=== PATIENT | male | born 1995 | race Two or more races ===

== ENCOUNTER → 2017-07-15 | Outpatient (REF) | payer OTHER | LOC: M SFHCLERA 18:57 | PROVIDERS: ATTEND Physician Assistant | DX: J02.9 Acute pharyngitis, unspecified (principal) ==

== ENCOUNTER 2023-08-03 07:48 | Emergency (ER) | payer OTHER ==
[~2023-08-03] VITALS: Ht 175.3 cm; Wt 100.7 kg
[2023-08-03] MEDS ORDERED: DICYCLOMINE 10 MG CAP PO ONE (08:30)
[2023-08-03 08:37] LABS: BASO % 0.2 % (0.0-1.0); EOS # 0.4 10^3/uL (0.0-0.5); EOS % 3.8 % (0.0-3.0); HEMATOCRIT 50.6 % (42.0-52.0); LYMPH # 2.6 10^3/uL (1.5-5.0); LYMPH % 25.5 % (24.0-44.0); MEAN CORPUSCULAR HEMOGLOBIN 28.2 pg (27.0-33.0); MEAN CORPUSCULAR HGB CONC 33.6 g/dl (32.0-36.5); MEAN CORPUSCULAR VOLUME 83.9 fl (80.0-96.0); MONO # 0.7 10^3/uL (0.0-0.8); MONO % 6.9 % (2.0-8.0); NEUTROPHILS # 6.5 10^3/uL (1.5-8.5); NEUTROPHILS % 63.4 % (36.0-66.0); PLATELET COUNT, AUTOMATED 245 10^3/uL (150-450); RED BLOOD COUNT 6.03 10^6/uL (4.30-6.10); WHITE BLOOD COUNT 10.2 10^3/uL (4.0-10.0)
[2023-08-03 08:56] LABS: ALBUMIN 4.5 G/DL (3.2-5.2); BILIRUBIN,DIRECT 0.5 MG/DL (<0.4); BILIRUBIN,TOTAL 1.5 MG/DL (0.3-1.2); TOTAL PROTEIN 7.5 G/DL (5.7-8.2)
[2023-08-03] MEDS ORDERED: KETOROLAC 30 MG/ML 1ML VIAL IV ONE (11:00)
[2023-08-03] MEDS ORDERED: ONDANSETRON 4MG 2ML VIAL IV ONE (11:00)
[2023-08-03 12:39] VITALS: BP 125/79; TEMP 98.9; O2SAT 97
== END 2023-08-03 12:40 | disposition home or self-care (01) ==
LOC: M ED 07:48
DX: R10.84 Generalized abdominal pain (principal); F10.10 Alcohol abuse, uncomplicated; Z91.048 Other nonmedicinal substance allergy status

== ENCOUNTER 2023-12-14 12:14 | Emergency (ER) | payer OTHER, SELFPAY ==
[~2023-12-14] VITALS: Ht 175.3 cm; Wt 96.3 kg
[2023-12-14] MEDS ORDERED: BENA25CA4 PO (12:23)
[2023-12-14 13:01] LABS: BASO % 0.2 % (0.0-1.0); EOS # 0.2 10^3/uL (0.0-0.5); EOS % 1.9 % (0.0-3.0); HEMATOCRIT 46.1 % (42.0-52.0); HEMOGLOBIN 15.6 g/dl (13.5-17.5); LYMPH # 1.6 10^3/uL (1.5-5.0); LYMPH % 14.7 % (24.0-44.0); MEAN CORPUSCULAR HEMOGLOBIN 28.9 pg (27.0-33.0); MEAN CORPUSCULAR HGB CONC 33.8 g/dl (32.0-36.5); MEAN CORPUSCULAR VOLUME 85.4 fl (80.0-96.0); NEUTROPHILS % 73.8 % (36.0-66.0); PLATELET COUNT, AUTOMATED 305 10^3/uL (150-450); WHITE BLOOD COUNT 10.8 10^3/uL (4.0-10.0)
[2023-12-14 13:28] LABS: LIPASE 35 U/L (12-53)
[2023-12-14 13:31] LABS: ALKALINE PHOSPHATASE 118 U/L (46-116); ALT/SGPT 150 U/L (7.0-40); AST/SGOT 190 U/L (<34); BILIRUBIN,DIRECT 1.6 MG/DL (<0.4); BILIRUBIN,TOTAL 3.2 MG/DL (0.3-1.2); BLOOD UREA NITROGEN 18 MG/DL (9-23); CARBON DIOXIDE LEVEL 27 MMOL/L (20-31); CHLORIDE LEVEL 109 MMOL/L (98-107); CREATININE FOR GFR 1.03 MG/DL (0.70-1.30); GLOMERULAR FILTRATION RATE > 60.0 (>60); GLUCOSE, FASTING 92 MG/DL (60-100); POTASSIUM SERUM 4.3 MMOL/L (3.5-5.1); SODIUM LEVEL 140 MMOL/L (136-145)
[2023-12-14] MEDS: NS 1,000 ML IV ONE (15:31)
[2023-12-14 15:49] LABS: HEPATITIS C VIRUS ABY INDEX 0.04 INDEX (<0.8)
[2023-12-14 15:50] LABS: HEPATITIS B CORE ANTIBODY IGM NEGATIVE (NEGATIVE)
[2023-12-14 20:46] LABS: BILIRUBIN,TOTAL 4.3 MG/DL (0.3-1.2)
[2023-12-14 20:47] LABS: ALBUMIN 3.7 G/DL (3.2-5.2); BILIRUBIN,DIRECT 2.5 MG/DL (<0.4); TOTAL PROTEIN 6.6 G/DL (5.7-8.2)
[2023-12-14 21:41] VITALS: BP 120/68
[2023-12-14 21:44] VITALS: TEMP 98.8; O2SAT 96
[2023-12-15] MEDS ORDERED: BENA25CA4 PO (13:35)
== END 2023-12-14 21:50 | disposition home or self-care (01) ==
LOC: M ED 12:14
DX: K80.51 Calculus of bile duct without cholangitis or cholecystitis with obstruction (principal); R74.01 Elevation of levels of liver transaminase levels; N28.1 Cyst of kidney, acquired; K76.0 Fatty (change of) liver, not elsewhere classified

== ENCOUNTER 2023-12-15 13:29 | Emergency (ER) | payer OTHER, SELFPAY ==
[~2023-12-15] VITALS: Ht 175.3 cm; Wt 95.9 kg
[~2023-12-15 13:29] MED LIST: BENA25CA4 PO
[2023-12-15] MEDS ORDERED: BENA25CA4 PO (13:35)
[2023-12-15 14:04] LABS: BASO % 0.4 % (0.0-1.0); EOS # 0.2 10^3/uL (0.0-0.5); EOS % 2.7 % (0.0-3.0); HEMATOCRIT 44.7 % (42.0-52.0); LYMPH # 1.4 10^3/uL (1.5-5.0); LYMPH % 19.2 % (24.0-44.0); MEAN CORPUSCULAR HEMOGLOBIN 28.2 pg (27.0-33.0); MEAN CORPUSCULAR HGB CONC 33.6 g/dl (32.0-36.5); MEAN CORPUSCULAR VOLUME 84.2 fl (80.0-96.0); MONO # 0.7 10^3/uL (0.0-0.8); MONO % 10.2 % (2.0-8.0); NEUTROPHILS # 4.8 10^3/uL (1.5-8.5); NEUTROPHILS % 67.1 % (36.0-66.0); PLATELET COUNT, AUTOMATED 297 10^3/uL (150-450); RED BLOOD COUNT 5.31 10^6/uL (4.30-6.10); WHITE BLOOD COUNT 7.1 10^3/uL (4.0-10.0)
[2023-12-15 14:33] LABS: LIPASE 31 U/L (12-53)
[2023-12-15 15:00] LABS: ALBUMIN 3.9 G/DL (3.2-5.2); ALKALINE PHOSPHATASE 164 U/L (46-116); ALT/SGPT 1301 U/L (7.0-40); AST/SGOT 1034 U/L (<34); BILIRUBIN,TOTAL 6.7 MG/DL (0.3-1.2); BLOOD UREA NITROGEN 16 MG/DL (9-23); CALCIUM LEVEL 8.8 MG/DL (8.5-10.1); CARBON DIOXIDE LEVEL 24 MMOL/L (20-31); CHLORIDE LEVEL 103 MMOL/L (98-107); CREATININE FOR GFR 0.89 MG/DL (0.70-1.30); GLOMERULAR FILTRATION RATE > 60.0 (>60); GLUCOSE, FASTING 79 MG/DL (60-100); POTASSIUM SERUM 4.2 MMOL/L (3.5-5.1); SODIUM LEVEL 136 MMOL/L (136-145); TOTAL PROTEIN 6.8 G/DL (5.7-8.2)
[2023-12-15 15:28] LABS: BILIRUBIN,DIRECT 4.3 MG/DL (<0.4)
[2023-12-15] MEDS: NS 1,000 ML IV SCH (16:39)
[2023-12-15 16:56] LABS: INR 1.2; PROTHROMBIN TIME 14.8 SECONDS (12.5-14.5)
[2023-12-15] MEDS: PIPERACILLIN/TAZOBACTAM SOD 3.375 GM in D5W MINI-BAG PLUS 50 ML IV ONE (17:25)
[2023-12-15 18:25] VITALS: BP 119/75; TEMP 98.2; O2SAT 98
== END 2023-12-15 18:26 | disposition short-term general hospital (02) ==
LOC: M ED 13:29
DX: R74.01 Elevation of levels of liver transaminase levels (principal); K80.20 Calculus of gallbladder without cholecystitis without obstruction
CPT/HCPCS: 80053; 82248; 83690; 85025; 85610; 87635; 96361; 96365; 99284; J2543